=== PATIENT | male | born 1965 | race Two or more races ===

== ENCOUNTER → 2024-11-26 | Outpatient (CLI) | payer MEDICAID, SELFPAY ==
--- NOTE | 2024-11-26 13:58 | XR_ITS ---
Examination: Venous duplex lower extremity sonogram, bilateral. Date and time of exam: November 26, 2024, 1404 hrs. Indications: Right leg swelling and pain beginning one week ago Technique: Multiple sonographic images of the deep venous system have been obtained. B-mode/2-D grayscale imaging of vascular structures and Doppler spectral analysis (waveforms) and color performed Both legs are examined. Findings: Deep venous systems do not demonstrate abnormal echogenicity. All visualized deep veins exhibit compressibility. All visualized deep veins exhibit augmentation. Impression: Negative for deep vein thrombosis
== END | disposition home or self-care (01) ==
PROVIDERS: PCP Physician Assistant; Referring Provider Physician Assistant; Visit Provider Physician Assistant
DX: R60.0 Localized edema (principal)
CPT/HCPCS: 93970

== ENCOUNTER → 2024-12-23 | Outpatient (CLI) | payer MEDICAID, SELFPAY ==
--- NOTE | 2024-12-23 08:00 | XR_ITS ---
Exam: MRI knee without contrast, right Date and time of exam: December 23, 2024 0810 hrs. Indications: Generalized right knee pain joint clicking stiffness instability swelling 8 months Technique: Multiple axial, coronal, and sagittal sections on the knee have been obtained. T2-Weighted sagittal, fat-suppressed images, TR 3,500, TE 62, T2 weighted coronal fat-saturated images, TR 3,500, TE 62 Proton density sagittal sections, TR 1800, TE 31. T-1 weighted coronal images, TR 524, TE 13.0 Findings: Medial meniscus anterior horn intact. Medial meniscus, body is intact. Posterior horn medial meniscus horizontal linear tear communicating inner margin. Lateral meniscus anterior horn is intact Lateral meniscus, body is intact Posterior horn lateral meniscus is intact Anterior cruciate ligament moderate sprain Posterior cruciate ligament appears intact. Knee effusion is small. Quadriceps and patellar tendons appear intact. There is no evidence of tendinosis. Inflammatory change or fracture of Hoffa's fat pad is not seen. Medial patellar facet demonstrates severe thinning. Lateral patellar facet cartilage demonstrates moderate thinning. Trochlear cartilage demonstrates moderate thinning. Marrow signal adequate. Medial collateral ligament appears intact. No meniscocapsular separation is seen. Illiotibial band and fibular collateral ligament are intact. Biceps femoris tendons appear intact. Medial femoral condylar articular cartilage demonstrates moderate thinning. Lateral femoral condylar articular cartilage demonstratesmoderate thinning. Tibial plateau cartilage demonstrates moderate thinning. Impression: Horizontal linear tear posterior horn medial meniscus Moderate sprain interpeduncular ligament Severe thinning cartilage medial patellar facet
== END | disposition home or self-care (01) ==
PROVIDERS: PCP Physician Assistant; Referring Provider Physician Assistant; Visit Provider Physician Assistant
DX: S83.241A Other tear of medial meniscus, current injury, right knee, initial encounter (principal); S83.8X1A Sprain of other specified parts of right knee, initial encounter; X58.XXXA Exposure to other specified factors, initial encounter
CPT/HCPCS: 73721

== ENCOUNTER 2025-03-08 09:28 | Outpatient (AMB) | payer MEDICAID, SELFPAY ==
[2025-03-08 09:57] VITALS: BP 175/98; PULSE 66; RESP 18; TEMP 36.7; O2SAT 93; BMI 40.8
--- NOTE | 2025-03-08 09:57 | PD.ORTHCLVIS ---
Vital signs 03/08/25 09:57 Height 1.8 m Height Method Stated Weight 132.676 kg Weight Measurement Method Standing Scale BMI 40.8 BP 175/98 H Blood Pressure Source Automatic Cuff Blood Pressure Location Right Upper Arm Position Sitting Respiration 18 Pulse 66 Pulse Source Monitor Temp 98.1 F Temp Source Temporal Artery Scan Pulse Oximetry (%) 93 L Oxygen Delivery Method Room Air Med/Allergies Allergies & Medications Allergies No Known Allergies Allergy (Verified 03/08/25 09:58) Medication Reconciliation gabapentin 100 mg capsule 100 mg PO TID 03/08/25 [History Confirmed 03/08/25] Exam Exam Breathing is nonlabored. Patient has a normal mood and affect. Bilateral extremities were evaluated and demonstrates sensation intact to light touch. Palpable pedal pulses are present. No significant edema is present. Bilateral hips were examined. The patient has no pain with log roll of the hips. Internal rotation to 30 degrees and external rotation to 30 degrees is painless. Negative FADIR. Left knee was examined today. The left knee is in reasonable alignment. Range of motion from 0-120 degrees. Knee is stable to varus and valgus as well as AP translation with <5mm. Patient has a negative McMurrays. There is no pain with patellofemoral compression and no crepitus noted. The knee is nontender to palpation. The right knee was also examined. The right knee is in varus alignment. Range of motion from 0-115 degrees. Knee is stable to varus and valgus as well as AP translation with <5mm. Patient has a negative McMurrays. There is no pain with patellofemoral compression and no crepitus noted. The knee is tender to palpation medially. An MRI demonstrates degenerative changes including cartilage loss on the tibial plateau. He is also a horizontal tear of the posterior horn Assessment and Plan Problem List (1) Arthritis of right knee: Status: Acute Plan: Patient is a pleasant 59-year-old male with right knee arthritis Who has not tried significant conservative treatment. He has a degenerative meniscal tear as well that we will likely treat nonoperatively. We discussed natural history we will get her set up for cortisone injections at the next visit. I would like to get weightbearing x-rays as well Office Procedures GNS Level of Care Nursing/Assessment Patient Status: Initial/New Patient Nursing Assessment/Reassesment: Medication Reconciliation, Update PMH in EMR and Vital Signs Coordination of Care: Complex Care and Chronic Disease 1-5, Education Complex Pt/Fam, Consent,records obtained, informed consent, 1 Ins Authorization, Lab and Imaging orders, Results/Orders obtained and Staff clarify orders New Patient Charge New Patient Point Assignment: [id number] New Patient Point Charge: ORGANISATIONAL PSYCHOLOGIST Level 4 ([id number]) MA Intake Visit Data Collection New Patient or Established: Established Patient (seen at [facility] within 3 years) Reason for Visit:: RIGHT KNEE MENISCUS TEAR Seen by Clinical Staff ONLY (RN/MA): No Events Assistant Required: No PCP or OBGYN visit in last 3 months: Yes Hx Now: No Do You Feel Safe at Home: Yes Authorities Contacted: N/A Questionairres Past Medical History Past Medical History Have you ever been diagnosed with any of the following: Subjective Visit Visit for: new patient and knee (RIGHT KNEE ) Immunization / Flu Flu Vaccine in the Last 12 Months: Yes Flu Vaccine Exclusion Criteria: Already Received History of Present Illness Chief complaint: Right knee pain Christian is a pleasant 59-year-old male with right knee pain that has been ongoing for several years. He has not had any conservative treatment. He has tried diclofenac oral. He has not had any injections in the past Personal History Red flag PMH: none Pain Pain level (0-10): 10 Pain duration: 7 MONTHS- DUE TO A FALL Pain location: anterior Pain quality: burning and electric Pain timing: night and increases with activity Associated signs & symptoms: numbness Ambulatory data Ambulatory device: none Walking distance (minutes): 1 Treatments Number of previous injections: 0 Number of Physical Therapy sessions: 0 Improvement with NSAIDS: n/a Review of Systems Review of Systems: All systems negative unless otherwise noted in HPI.
--- NOTE | 2025-03-08 10:02 | XR_ITS ---
Examination: Bilateral AP knees single view PA lateral axial right knee 3 views TECHNIQUE: Bilateral AP knees standing single view Standing PA lateral right knee, axial right knee total 3 views Date and time: March 08, 2025 1011 hours INDICATIONS: Right knee pain 7 months. FINDINGS: Moderate narrowing medial lateral joint spaces right knee Moderate osteoarthritis right patellofemoral joint No right knee fracture No patellar dislocation Mild to moderate narrowing medial joint space left knee Moderate narrowing lateral joint space left knee No fracture IMPRESSION: Moderate narrowing medial lateral joint spaces right knee Moderate osteoarthritis right patellofemoral joint
== END 2025-03-08 10:05 | disposition home or self-care (01) ==
PROVIDERS: PCP Physician Assistant; Referring Provider Physician Assistant; Supervising Provider Orthopaedic Surgery Adult Reconstructive Orthopaedic Surgery; Visit Provider Orthopaedic Surgery Adult Reconstructive Orthopaedic Surgery
DX: M17.11 Unilateral primary osteoarthritis, right knee (principal); M25.561 Pain in right knee; S83.206A Unspecified tear of unspecified meniscus, current injury, right knee, initial encounter; X58.XXXA Exposure to other specified factors, initial encounter
CPT/HCPCS: 73564; 99204; G0463

== ENCOUNTER 2025-03-31 08:37 | Outpatient (AMB) | payer MEDICAID, SELFPAY ==
--- NOTE | 2025-03-31 09:14 | ORTHONT_ITS ---
Vital signs 03/31/25 09:18 Height 1.8 m Height Method Measured Weight 133.81 kg Weight Measurement Method Standing Scale BMI 41.3 BP 166/81 H Blood Pressure Source Automatic Cuff Blood Pressure Location Left Upper Arm Position Sitting Respiration 18 Pulse 84 Pulse Source Monitor Temp 97.9 F Temp Source Temporal Artery Scan Pulse Oximetry (%) 94 L Oxygen Delivery Method Room Air Med/Allergies Allergies & Medications Allergies No Known Allergies Allergy (Verified 03/31/25 09:19) Medication Reconciliation gabapentin 100 mg capsule 100 mg PO TID 03/08/25 [History Confirmed 03/31/25] meloxicam 7.5 mg tablet 7.5 mg PO QDAY #45 tabs 03/31/25 [Rx] Office Procedures GNS Level of Care Nursing/Assessment Patient Status: Established Patient Nursing Assessment/Reassesment: Medication Reconciliation, Update PMH in EMR and Vital Signs Coordination of Care: Complex Care and Chronic Disease 1-5, Education Complex Pt/Fam, Consent,records obtained, informed consent, Results/Orders obtained and Staff clarify orders Established Patient Charge Established Patient Point Assignment: 95 Established Patient Point Charge: EP Level 3 (80-115) Surgical Proc/IM SQ injection Major Surgical Procedure: Yes (KNEE INJECTION) Medication Given Medication Given Medication Given: Yes Documented Dose Given: 4 Route: Infiitration Medication Given Medication Given Medication Given: Yes Documented Dose Given: 1 Route: Infiitration Office Meds Xylocaine 10 mg/mL (1 %) injection solution Performing Provider: Ritchie Stein MD Performing Location: [facility] Administered by: Ritchie Stein MD on 03/31/25 09:38 Dose Route Admin Location Dispensed Lot Number Expiration Date [facility] Accounts Receivable Manager 20 mL Infiltration 20 mL [id number] 06/14/28 69936-309-42 [facility] triamcinolone acetonide 40 mg/mL suspension for injection Performing Provider: Ritchie Stein MD Performing Location: [facility] Administered by: Ritchie Stein MD on 03/31/25 09:38 Dose Route Admin Location Dispensed Lot Number Expiration Date [facility] Accounts Receivable Manager 40 mg intra-articular KNEE 1 mL [id number] 10/14/26 06557-240-95 FLACO SORENSON MA Intake Visit Data Collection New Patient or Established: Established Patient (seen at [facility] within 3 years) Reason for Visit:: RIGHT KNEE XRAY F/U Seen by Clinical Staff ONLY (RN/MA): No Breastfeeding Peer Counselor Required: No PCP or OBGYN visit in last 3 months: Yes Hx Now: No Do You Feel Safe at Home: Yes Authorities Contacted: N/A Questionairres Past Medical History Past Medical History Have you ever been diagnosed with any of the following: Subjective Visit Visit for: follow up visit and knee Immunization / Flu Flu Vaccine in the Last 12 Months: Yes Flu Vaccine Exclusion Criteria: Already Received History of Present Illness Chief complaint: RIGHT KNEE XRAY F/U Personal History BMI Counceling provided: No Pain Pain level (0-10): 10 Pain location: outside (lateral) Pain quality: sharp Pain timing: increases with activity Associated signs & symptoms: none Ambulatory data Ambulatory device: none Treatments Improvement with previous injections: No Improvement with PT: No Improvement with NSAIDS: no Review of Systems Review of Systems: All systems negative unless otherwise noted in HPI.
[2025-03-31 09:18] VITALS: BP 166/81; PULSE 84; RESP 18; TEMP 36.6; O2SAT 94; BMI 41.3
== END 2025-03-31 09:35 | disposition home or self-care (01) ==
LOC: HODSRG 08:37
PROVIDERS: PCP Physician Assistant; Referring Provider Physician Assistant; Supervising Provider Orthopaedic Surgery Adult Reconstructive Orthopaedic Surgery; Visit Provider Orthopaedic Surgery Adult Reconstructive Orthopaedic Surgery
DX: M25.561 Pain in right knee (principal)
CPT/HCPCS: 20610; 99213; J3301; J3490; G0463

== ENCOUNTER 2025-06-14 12:39 | Outpatient (RCR) | payer MEDICAID, SELFPAY ==
--- NOTE | 2025-06-14 13:37 | PT.OIERPT ---
PT OP Initial Eval Patient Information Outpatient Physical Therapy Treatment Date: 06/14/25 Visit Reasons: right acl sprain meniscal tear Medical Diagnosis: M23.221 Treatment Dx #1: R knee pain Start of Care: 06/14/25 Date of Onset: April 2024 Smoking Status Smoking Status: Never smoker Initial Assessment Subjective: Pt is 59 yr old male who fell and injured the R knee last year. He reports R knee pain that limits getting up from a chair and ambulatory distance to about 100' and then he sits. It hurts all the time and interrupts sleep. Pt reports he limps due to pain. PMH: HTN Imaging: Xray and MRI of R knee Horizontal linear tear posterior horn medial meniscus Pt goal: to not limp in order to golf Objective: R knee AROM: ? Flexion: 80 deg ? Extension: full ? PROM: 85 deg flexion ? SLR: 55 deg with slight extensor lag ? Strength: R quads 3+/5, hamstrings 4/5 ? Antalgic gait pattern with decreased stance time on R Assessment: Pt presents with decreased strength and WB tolerance of R knee consistent with MRI that reveals medial meniscus tear. Pt may benefit from skilled therapy to strengthen the knee and has poor/fair rehab potential to meet goals. Short Term and Longterm Goals 1. Independent with HEP ? 2. Improved knee flexion ROM to 100 deg ? 3. Improved quad and hamstring strength to 4/5 ? 4. Improved ambulatory tolerance to community distances with symmetrical ? gait pattern. Treatment Plan ? 1. Manual therapy ? 2. Therex ? 3. Modalities as indicated, moist heat, ice, estim Frequency and Duration: 1-2x a week for 12 visits plus the evaluation Certification Dates: 06/14/25 to 09/12/25 Procedure Charges OP PT Eval Mod Complex 30 minutes: Yes
== END 2025-06-14 23:59 | disposition home or self-care (01) ==
LOC: CPTX 12:39
PROVIDERS: PCP Family Medicine; Referring Provider Family Medicine; Visit Provider Family Medicine
DX: M25.561 Pain in right knee (principal); M23.221 Derangement of posterior horn of medial meniscus due to old tear or injury, right knee; I10 Essential (primary) hypertension
CPT/HCPCS: 97162

== ENCOUNTER 2025-06-27 13:12 | Outpatient (AMB) | payer MEDICAID, SELFPAY ==
--- NOTE | 2025-06-27 13:20 | PD.GSCLVISIT ---
Vital Signs - [facility] 06/27/25 13:24 Height 1.8 m Height Method Measured Weight 129.784 kg Weight Measurement Method Standing Scale BMI 40.0 BP 105/62 Blood Pressure Source Automatic Cuff Blood Pressure Location Left Upper Arm Position Sitting Respiration 18 Pulse 90 Pulse Source Monitor Temp 97.8 F Temp Source Temporal Artery Scan Pulse Oximetry (%) 91 L Oxygen Delivery Method Room Air Med/Allergies Allergies & Medications Allergies No Known Allergies Allergy (Verified 06/27/25 13:25) Medication Reconciliation gabapentin 100 mg capsule 100 mg PO TID 03/08/25 [History Confirmed 06/27/25] meloxicam 7.5 mg tablet 7.5 mg PO QDAY #45 tabs 03/31/25 [Rx Confirmed 06/27/25] MA Intake Visit Data Collection New Patient or Established: Established Patient (seen at [facility] within 3 years) Seen by Clinical Staff ONLY (RN/MA): No Reason for Visit:: REFERRAL COLONOSCOPY Pain Present Currently: No Pain Scale Used: Hallman-Henry/Numerical Preschool Aide Required: No PCP or OBGYN visit in last 3 months: Yes Hx Now: No Do You Feel Safe at Home: Yes Authorities Contacted: N/A Smoking Status Smoking Status: Never smoker Immunization / Flu Flu Vaccine in the Last 12 Months: Yes Flu Vaccine Exclusion Criteria: Already Received Past Medical History Social History SMOKING STATUS: Smoking status: Never smoker HPI HPI Narrative HISTORY OF PRESENT ILLNESS I, Kimberlee Iglesias, have obtained verbal consent from the patient, to be recorded during this encounter which may include, but not limited to, medical history, examination, treatment plans, and relevant health information.? Patient was informed that recording will be read and reviewed by myself before inclusion in the medical chart. 59M referred for screening colonoscopy. Pt states he had one 11-12 years ago, was advised he had some polyps but that he did not require more frequent screening. He feels well with no recent changes in bowel habits, no blood in stool, no anorexia and no unintentional weight loss PMH: HTN, knee and ankle problems PSHx: Remote hand surgery Meds: Gabapentin, meloxicam Allergies: NKDA Family hx: No known malignancies 1. Colonoscopy. A colonoscopy is scheduled for the fridayJuly 2025. The procedure will be performed under conscious sedation, aiming to reach the end of the colon. If polyps are detected, they will be removed. The potential risks associated with the procedure, including bleeding and colon perforation, were discussed. Bleeding is usually self-limiting, but colon perforation would require emergency surgery. If the colon cannot be safely examined in its entirety, referral to a GI specialist will be necessary. The procedure typically lasts about 30 minutes, but plan to be present for a couple of hours. A follow-up appointment will be scheduled 1 to 2 weeks post-procedure to discuss any findings and determine the timing of the next colonoscopy. Abstain from solid foods the day prior to the procedure, consume clear liquids throughout the day, and avoid red liquids. The preparation process will commence in the afternoon of the day before the procedure, with instructions provided for review at convenience. The prep will be sent to the pharmacy. ROS Review of Systems Systems Reviewed: All systems reviewed, normal except as documented Objective/Exam General General Appearance: alert, cooperative and well groomed Resp Respiratory exam: Absent respiratory distress Assessment & Plan Diagnosis / Problem List (1) Encounter for screening colonoscopy: Status: Acute Assessment & Plan: A colonoscopy will be scheduled. The procedure will be performed under conscious sedation, aiming to reach the end of the colon. If polyps are detected, they will be removed. The potential risks associated with the procedure, including bleeding and colon perforation, were discussed. Bleeding is usually self-limiting, but colon perforation would require emergency surgery. If the colon cannot be safely examined in its entirety, referral to a GI specialist will be necessary. A follow-up appointment will be scheduled 1 to 2 weeks post-procedure to discuss any findings and determine the timing of the next colonoscopy. Abstain from solid foods the day prior to the procedure, consume clear liquids throughout the day, and avoid red liquids. The preparation process will commence in the afternoon of the day before the procedure, with instructions provided for review at convenience. The prep will be sent to the pharmacy. All questions were answered and pt is agreeable to proceeding Office Procedures GNS Level of Care Nursing/Assessment Patient Status: Established Patient Nursing Assessment/Reassesment: Medication Reconciliation, Update PMH in EMR and Vital Signs Coordination of Care: Complex Care and Chronic Disease 1-5, Education Complex Pt/Fam, Consent,records obtained, informed consent, Results/Orders obtained and Staff clarify orders Established Patient Charge Established Patient Point Assignment: 95 Established Patient Point Charge: EP Level 3 (80-115) Patient Portal Questionaires Social History Tobacco History Smoking Status: Never smoker Domestic Abuse History Do You Feel Safe at Home: Yes Review of Systems Report any current symptoms Only answer those that you have currently: Past Medical History Past Medical History Have you ever been diagnosed with any of the following:
[2025-06-27 13:24] VITALS: BP 105/62; PULSE 90; RESP 18; TEMP 36.6; O2SAT 91; BMI 40.0
== END 2025-06-27 13:45 | disposition home or self-care (01) ==
LOC: HODSRG 13:12
PROVIDERS: PCP Family Medicine; Referring Provider Family Medicine; Supervising Provider Surgery; Visit Provider Surgery
DX: Z12.11 Encounter for screening for malignant neoplasm of colon (principal); Z86.018 Personal history of other benign neoplasm
CPT/HCPCS: 99213; G0463

== ENCOUNTER 2025-06-30 13:00 | Outpatient (RCR) | payer MEDICAID, SELFPAY ==
--- NOTE | 2025-06-27 18:14 | PT.ODAYNRPT ---
PT Outpatient Daily Note OP Daily Note Outpatient Physical Therapy Treatment Date: 06/27/25 Visit Reasons: right acl sprain meniscal tear Subjective: Same as time of evaluation Objective: See F/S for therex Assessment: High tissue irritability with lunging and squatting of R knee Plan: Continue per POC Length of Time (minutes) of Treatment: 30 Minutes Procedure Charges Therapeutic Exercise 30 minutes: Yes
--- NOTE | 2025-06-30 13:29 | PT.ODAYNRPT ---
PT Outpatient Daily Note OP Daily Note Outpatient Physical Therapy Treatment Date: 06/30/25 Visit Reasons: right acl sprain meniscal tear Subjective: Same as time of evaluation Objective: See F/S for therex Assessment: High tissue irritability with lunging and squatting of R knee Plan: Continue per POC Length of Time (minutes) of Treatment: 30 Minutes Procedure Charges Therapeutic Exercise 30 minutes: Yes
== END 2025-07-15 23:59 | disposition home or self-care (01) ==
LOC: CPTX 13:00
PROVIDERS: PCP Family Medicine; Referring Provider Family Medicine; Visit Provider Family Medicine
DX: M25.561 Pain in right knee (principal); S83.511D Sprain of anterior cruciate ligament of right knee, subsequent encounter; X58.XXXD Exposure to other specified factors, subsequent encounter
CPT/HCPCS: 97110

== ENCOUNTER 2025-07-28 13:26 | Outpatient (AMB) | payer MEDICAID, SELFPAY ==
--- NOTE | 2025-07-28 13:52 | PD.ORTHCLVIS ---
Vital signs 07/28/25 13:53 Height 1.8 m Height Method Measured Weight 129.274 kg Weight Measurement Method Standing Scale BMI 39.9 BP 130/64 Blood Pressure Source Automatic Cuff Blood Pressure Location Left Upper Arm Position Sitting Respiration 18 Pulse 69 Pulse Source Monitor Temp 98.0 F Temp Source Temporal Artery Scan Pulse Oximetry (%) 92 L Oxygen Delivery Method Room Air Med/Allergies Allergies & Medications Allergies No Known Allergies Allergy (Verified 08/01/25 08:47) Medication Reconciliation amlodipine 10 mg tablet 10 mg PO QDAY 08/01/25 [History Confirmed 08/01/25] lisinopril 20 mg tablet 20 mg PO DAILY 08/01/25 [History Confirmed 08/01/25] Exam Exam Breathing is nonlabored. Patient has a normal mood and affect. Bilateral extremities were evaluated and demonstrates sensation intact to light touch. Palpable pedal pulses are present. No significant edema is present. Bilateral hips were examined. The patient has no pain with log roll of the hips. Internal rotation to 30 degrees and external rotation to 30 degrees is painless. Negative FADIR. Left knee was examined today. The left knee is in reasonable alignment. Range of motion from 0-120 degrees. Knee is stable to varus and valgus as well as AP translation with <5mm. Patient has a negative McMurrays. There is no pain with patellofemoral compression and no crepitus noted. The knee is nontender to palpation. The right knee was also examined. The right knee is in varus alignment. Range of motion from 0-115 degrees. Knee is stable to varus and valgus as well as AP translation with <5mm. Patient has a negative McMurrays. There is no pain with patellofemoral compression and no crepitus noted. The knee is tender to palpation medially. An MRI demonstrates degenerative changes including cartilage loss on the tibial plateau. He is also a horizontal tear of the posterior horn Assessment and Plan Problem List (1) Arthritis of right knee: Status: Acute Plan: Patient is a pleasant 59-year-old male with right knee arthritis Who has not tried significant conservative treatment. He has a degenerative meniscal tear as well that we will likely treat nonoperatively. We discussed natural history we will get her set up for cortisone injections at the next visit. Weightbearing x-rays demonstrate moderate arthritis in the knee Office Procedures GNS Level of Care Nursing/Assessment Patient Status: Established Patient Nursing Assessment/Reassesment: Medication Reconciliation, Update PMH in EMR and Vital Signs Coordination of Care: Complex Care and Chronic Disease 1-5, Education Complex Pt/Fam, Consent,records obtained, informed consent, Results/Orders obtained and Staff clarify orders Established Patient Charge Established Patient Point Assignment: 95 Established Patient Point Charge: EP Level 3 (80-115) MA Intake Visit Data Collection New Patient or Established: Established Patient (seen at [facility] within 3 years) Reason for Visit:: RIGHT KNEE 3 MONTH F/U Seen by Clinical Staff ONLY (RN/MA): No Customer Services Manager Required: No PCP or OBGYN visit in last 3 months: Yes Hx Now: No Do You Feel Safe at Home: Yes Authorities Contacted: N/A Questionairres Past Medical History Past Medical History Have you ever been diagnosed with any of the following: Subjective Visit Visit for: follow up visit and knee Immunization / Flu Flu Vaccine in the Last 12 Months: Yes Flu Vaccine Exclusion Criteria: Already Received History of Present Illness Chief complaint: RIGHT KNEE XRAY F/U Christian is a pleasant 59-year-old male with right knee pain that has been ongoing for several years. He has not had any conservative treatment. He has tried diclofenac oral. He has had injections in the past and reports only mild relief from Personal History Red flag PMH: none BMI Counceling provided: No Pain Pain level (0-10): 8 Pain duration: 7 MONTHS- DUE TO A FALL Pain location: anterior Pain quality: sharp, dull and aching Pain timing: night, increases with activity and stairs Associated signs & symptoms: weakness Ambulatory data Ambulatory device: none Walking distance (minutes): 1 Treatments Number of previous injections: 0 Improvement with previous injections: No Number of Physical Therapy sessions: 0 Improvement with PT: No Improvement with NSAIDS: no Review of Systems Review of Systems: All systems negative unless otherwise noted in HPI.
[2025-07-28 13:53] VITALS: BP 130/64; PULSE 69; RESP 18; TEMP 36.7; O2SAT 92; BMI 39.9
== END 2025-07-28 13:59 | disposition home or self-care (01) ==
LOC: HODSRG 13:26
PROVIDERS: PCP Physician Assistant; Referring Provider Physician Assistant; Supervising Provider Orthopaedic Surgery Adult Reconstructive Orthopaedic Surgery; Visit Provider Orthopaedic Surgery Adult Reconstructive Orthopaedic Surgery
DX: M17.11 Unilateral primary osteoarthritis, right knee (principal)
CPT/HCPCS: 99213; G0463

== ENCOUNTER 2025-07-28 14:11 | Outpatient (RCR) | payer MEDICAID, SELFPAY ==
--- NOTE | 2025-07-28 16:24 | PT.ODAYNRPT ---
PT Outpatient Daily Note OP Daily Note Outpatient Physical Therapy Treatment Date: 07/28/25 Visit Reasons: RIGHT ACL SPRAIN Subjective: He is walking further with continued R knee pain Objective: See F/S for therex Assessment: High tissue irritability with lunging and squatting of R knee Plan: Continue per POC Length of Time (minutes) of Treatment: 30 Minutes Procedure Charges Therapeutic Exercise 30 minutes: Yes
--- NOTE | 2025-09-01 14:37 | PT.ODS1RPT ---
PT OP Progress/Discharge Note Date of Service: 09/01/25 Progress Note/DC Note Progress Note/Discharge Note: DC Note Patient Information Visit Reasons: RIGHT ACL SPRAIN Service Continue Service or Discharge: Discharge Discharge Date: 09/01/25 Status Assessment: Pt attended the initial evaluation and 3 Rx visits with 4 cancelations and never returned or called to schedule a follow-up appointment within the past 30 days, which is not in compliance with attendance policy. Pt?s attendance is not consistent enough to make progress with goals. Authorization has . He wasn't making progress with goals at the time of last visit. Thank you for your referrals. Plan: D/C
== END 2025-08-14 23:59 | disposition home or self-care (01) ==
LOC: CPTX 14:11
PROVIDERS: PCP Family Medicine; Referring Provider Family Medicine; Visit Provider Family Medicine
DX: M25.561 Pain in right knee (principal); S83.241D Other tear of medial meniscus, current injury, right knee, subsequent encounter; W19.XXXD Unspecified fall, subsequent encounter; I10 Essential (primary) hypertension
CPT/HCPCS: 97110

== ENCOUNTER 2025-08-01 08:30 | Day surgery (SDC) | payer MEDICAID, SELFPAY ==
[2025-08-01] VITALS (12 sets, daily range): BP systolic 115–153; BP diastolic 77–97; PULSE 57–75; RESP 14–28; TEMP 36.4; O2SAT 93–98; BMI 39.6
[2025-08-01] MEDS: RINGERS LACTATED 500 ML 500 ML 20 ML IV (10:14)
[2025-08-01] MEDS: MIDAZOLAM INJ 1 MG/ML VIAL 2 ML (ASD USE ONLY) 2 MG IVP (10:25)
[2025-08-01] MEDS: fentaNYL CIT INJ 50 mCg/ML AMP 2ML (ASD USE ONLY) IVP (10:25)
[2025-08-01] MEDS: SIMETHICONE 40 MG/0.6 ML ORAL SYRINGE PO (10:40)
== END 2025-08-01 11:28 | disposition home or self-care (01) ==
PROVIDERS: PCP Family Medicine; Referring Provider Surgery; Visit Provider Surgery
PROC: 0DBE8ZX Excision of Large Intestine, Via Natural or Artificial Opening Endoscopic, Diagnostic (ICD-10-PCS; CPT 45380; principal; 2025-08-01 10:30)
DX: Z12.11 Encounter for screening for malignant neoplasm of colon (principal); D12.4 Benign neoplasm of descending colon; D12.8 Benign neoplasm of rectum; K57.30 Diverticulosis of large intestine without perforation or abscess without bleeding
CPT/HCPCS: 45385; A4649; J1200; J2250; J3010; J7120; A9270

== ENCOUNTER 2025-08-22 11:06 | Outpatient (AMB) | payer MEDICAID, SELFPAY ==
--- NOTE | 2025-08-22 11:07 | PD.GSCLVISIT ---
Med/Allergies Allergies & Medications Allergies No Known Allergies Allergy (Verified 08/22/25 11:07) Medication Reconciliation amlodipine 10 mg tablet 10 mg PO QDAY 08/01/25 [History Confirmed 08/22/25] lisinopril 20 mg tablet 20 mg PO DAILY 08/01/25 [History Confirmed 08/22/25] MA Intake Visit Data Collection New Patient or Established: Established Patient (seen at [facility] within 3 years) Seen by Clinical Staff ONLY (RN/MA): No Reason for Visit:: F/U COLONOSCOPY RESULTS Pain Present Currently: No Pain Scale Used: Hallman-Henry/Numerical Risk Officer Required: No PCP or OBGYN visit in last 3 months: Yes Hx Now: No Do You Feel Safe at Home: Yes Authorities Contacted: N/A Smoking Status Smoking Status: Never smoker For Telemed visit only Telemed Video/Phone Visit: Yes Verbal consent obtained for Telemed visit?: Yes Telemed Video/Phone visit w/Clinical Staff: 5-10 min Immunization / Flu Flu Vaccine in the Last 12 Months: No Flu Vaccine Exclusion Criteria: Refused by Patient Past Medical History Past Medical History NEUROLOGIC: Negative Neurological Disorders or Seizures CARDIAC: Positive Cardiac Disorders and Hypertension; Negative Congestive Heart Failure RESPIRATORY: Negative Chronic Obstructive Pulmonary Disease (COPD) GASTROINTESTINAL: Positive Gastrointestinal Disorders GENITOURINARY: Negative Genitourinary Disorders or Renal Disease MUSCULOSKELETAL: Positive Fractures (LEFT WRIST) ENDOCRINE: Negative Endocrine Disorders, Diabetes Mellitus Type 1 or Diabetes Mellitus Type 2 HEMATOLOGIC: Negative Blood Disorders OTHER HISTORY: Negative Blood Transfusions or Anesthesia Reactions Social History SMOKING STATUS: Smoking status: Never smoker ALCOHOL: Alcohol Intake: Current HOUSING: Housing: House HPI HPI Narrative 59M having televisit to follow up colonoscopy results. Pt reports feeling very well overall with no complaints, was found to have three small polyps (one could not be retrieved as it was cauterized), one being a tubular adenoma <1cm and the other a hyperplastic polyp. Pt also noted to have sigmoid diverticulosis ROS Review of Systems Systems Reviewed: All systems reviewed, normal except as documented Objective/Exam General General Appearance: alert, cooperative and well groomed Resp Respiratory exam: Absent respiratory distress Assessment & Plan Diagnosis / Problem List (1) Encounter to discuss colonoscopy results: Status: Acute Assessment & Plan: 59M having televisit to follow up colonoscopy results with findings of one tubular adenoma <1cm (an additional tiny polyp not retrieved as it was cauterized) and sigmoid diverticulosis. Given the tubular adenoma I recommended repeat colonoscopy in 7 years. All questions were answered and pt expressed understanding Office Procedures GNS Level of Care Nursing/Assessment Patient Status: Established Patient Nursing Assessment/Reassesment: Medication Reconciliation and Update PMH in EMR Coordination of Care: Complex Care and Chronic Disease 1-5, Education Complex Pt/Fam, Consent,records obtained, informed consent, Results/Orders obtained and Staff clarify orders Established Patient Charge Established Patient Point Assignment: 80 Established Patient Point Charge: EP Level 3 (80-115) Patient Portal Questionaires Social History Living Situation History Housing: House Tobacco History Smoking Status: Never smoker Alcohol History Alcohol Intake: Current Domestic Abuse History Do You Feel Safe at Home: Yes Review of Systems Report any current symptoms Only answer those that you have currently: Past Medical History Past Medical History Have you ever been diagnosed with any of the following: Neurological Problems Seizures: No Cardiology Problems Congestive Heart Failure: No Hypertension: Yes Respiratory Problems Chronic Obstructive Pulmonary Disease (COPD): No Genital/Urinary Problems Renal Disease: No Musculoskeletal Problems Fractures: Yes (LEFT WRIST) Endocrine Problems Diabetes Mellitus Type 1: No Diabetes Mellitus Type 2: No Other Problems Blood Transfusions: No Anesthesia Reactions: No
== END 2025-08-22 11:18 | disposition home or self-care (01) ==
LOC: HODSRG 11:06
PROVIDERS: PCP Family Medicine; Referring Provider Family Medicine; Supervising Provider Surgery; Visit Provider Surgery
DX: Z71.2 Person consulting for explanation of examination or test findings (principal); D36.9 Benign neoplasm, unspecified site; K57.30 Diverticulosis of large intestine without perforation or abscess without bleeding; I10 Essential (primary) hypertension
CPT/HCPCS: 99213; G0463